=== PATIENT | male | born 1945 | race Caucasian/White ===

== ENCOUNTER → 2016-11-04 | Outpatient (CLI) | payer MEDICARE, OTHER | END | disposition home or self-care (01) | LOC: GMAL 10:53 | PROVIDERS: ATTEND Family Medicine | DX: D51.3 Other dietary vitamin B12 deficiency anemia (principal); E55.9 Vitamin D deficiency, unspecified; R97.20 Elevated prostate specific antigen [PSA] ==

== ENCOUNTER → 2017-05-06 | Outpatient (CLI) | payer MEDICARE, OTHER | END | disposition home or self-care (01) | LOC: GMAL 10:51 | PROVIDERS: ATTEND Family Medicine | DX: R53.82 Chronic fatigue, unspecified (principal) ==

== ENCOUNTER 2018-03-06 20:25 | Emergency (ER) | payer MEDICARE, OTHER ==
[2018-03-06] MEDS ORDERED: SODIUM CHLORIDE 0.9% (FLUSH) 10 ML SYG IV PRN (20:42)
[2018-03-06] MEDS ORDERED: IPRATROPIUM/ALBUTEROL 3 ML VIAL NEB ONE (21:30)
--- NOTE | 2018-03-06 21:33 | RAD ---
EXAM DESCRIPTION: Chest,1 View CLINICAL HISTORY: shortness of breath COMPARISON: January 10, 2014 FINDINGS: Apices were not included in the examination. Patient is rotated. Patient is status post median sternotomy. Pacer leads project over the heart. EKG leads project over the chest. Cardiac silhouette is within normal limits. There is no focal parenchymal or pleural disease. There is no acute osseous process visualized. IMPRESSION: No evidence of acute cardiopulmonary disease. Electronically signed by: Guy Bhat MD 03/06/2018 9:32 PM CDT
--- NOTE | 2018-03-06 21:38 | ED.PDOC ---
History of Present Illness - General Chief Complaint: Cardiovascular Problem Stated Complaint: feels like having an irregular heart beat Time Seen by Provider: 03/06/18 20:42 Source: patient, family - History of Present Illness Timing/Duration: 4-6 hours Severity: mild Location: substernal, other - palpitations Activities at Onset: none Prior Chest Pain/Cardiac Workup: cardiac cath, heart attack Improving Factors: nothing Worsening Factors: nothing Associated Symptoms: shortness of breath Allergies/Adverse Reactions: Allergies NO KNOWN ALLERGY Allergy (Unverified 01/10/14 22:10) Home Medications: Ambulatory Orders Amoxicillin 875 mg PO BID #14 tab 03/06/18 Carvedilol 3.125 mg PO BID #30 tab 03/06/18 predniSONE 40 mg PO DAILY #10 tab 03/06/18 Review of Systems - Review of Systems Constitutional: States: no symptoms reported EENTM: States: no symptoms reported Respiratory: States: short of breath, wheezing Cardiology: States: palpitations Gastrointestinal/Abdominal: States: no symptoms reported Genitourinary: States: no symptoms reported Musculoskeletal: States: no symptoms reported Skin: States: no symptoms reported Neurological: States: no symptoms reported Endocrine: States: no symptoms reported Hematologic/Lymphatic: States: no symptoms reported Past Medical History (General) - Patient Medical History Hx Asthma: Yes - undx Hx Cardiac Disorders: Yes - triple bypass Hx Congestive Heart Failure: No Hx Pacemaker: Yes Hx Hypertension: Yes Surgical History: coronary bypass surgery - Vaccination History Hx Influenza Vaccination: Yes Hx Pneumococcal Vaccination: Yes - Social History Hx Tobacco Use: Yes Hx Alcohol Use: No Family Medical History - Family History Father Hx Cardiac Disease: Yes Hx Family Cancer: Yes Physical Exam - Physical Exam General Appearance: Alert Eyes, Ears, Nose, Throat Exam: PERRL/EOMI, normal ENT inspection Neck: non-tender, full range of motion, supple Respiratory: wheezing Cardiovascular/Chest: normal peripheral pulses, bradycardia, irregularly irregular Peripheral Pulses: radial,right: 2+ Gastrointestinal/Abdominal: non tender, soft Extremity: normal range of motion, non-tender, normal inspection Neurologic: no motor/sensory deficits, alert, normal mood/affect Skin Exam: normal color, warm/dry Lymphatic: no adenopathy Progress - Progress Progress: 03/06/18 22:29 pt feels improved after neb treatment. states that has had increased cough, mucus production and sob recently. currently taking 6.25 mg carvedilol at home bid. palpated HR is 40's due to lack of profusion of the PVC's. Will decrease cavedilol to 3.125 mg bid and treat copd. o2 is normal and bp is stable. labs show prerenal azotemia so will give small ns bolus. advised close f/u with Dr. Jordan if continued palpitations or if becomes symptomatic from it. will check bp and pulse bid until f/u. pending repeat cardiac enzyme to rule out acs as a cause. currently feel primary lung issues as cause to pvc's. will return if acute worsening or chest pain. 03/06/18 23:50 road test without difficulty or problem, pt reports that feels improved after neb/ ns Departure - Departure Clinical Impression: Heart palpitations, PVCs (premature ventricular contractions), COPD with exacerbation, Bradycardia Time of Disposition: 23:47 Disposition: Discharge to Home or Self Care Condition: Good Departure Forms: ED Discharge - Pt. Copy, Patient Portal Self Enrollment Instructions: Premature Ventricular Beats, Chronic Obstructive Pulmonary Disease Diet: resume usual diet Activity: increase activity as tolerated Referrals: EDUARDO JORDAN [Referring] - 1-2 Weeks Prescriptions: Amoxicillin 875 mg PO BID #14 tab Carvedilol 3.125 mg PO BID #30 tab predniSONE 40 mg PO DAILY #10 tab Home Medications: Ambulatory Orders Amoxicillin 875 mg PO BID #14 tab 03/06/18 Carvedilol 3.125 mg PO BID #30 tab 03/06/18 predniSONE 40 mg PO DAILY #10 tab 03/06/18
[2018-03-06] MEDS ORDERED: AMOXICILLIN TRIHYDRATE 875 MG TAB PO ONE (22:28)
[2018-03-06] MEDS ORDERED: SODIUM CHLORIDE 0.9% 250ML 250 ML IVS ONE (22:28)
[2018-03-06] MEDS ORDERED: predniSONE 20 MG TAB PO ONE (22:28)
[2018-03-06] MEDS ORDERED: ALBUTEROL INH (ER DISPENSE) 1 EA INH INH ONE (23:30)
[2018-03-07 00:14] VITALS: BP 129/64; TEMP 97.9; O2SAT 93
== END 2018-03-07 00:06 | disposition home or self-care (01) ==
LOC: ER 20:25
DX: I49.3 Ventricular premature depolarization (principal); R00.1 Bradycardia, unspecified; J44.1 Chronic obstructive pulmonary disease with (acute) exacerbation; R00.2 Palpitations; I25.2 Old myocardial infarction; I10 Essential (primary) hypertension; Z95.1 Presence of aortocoronary bypass graft; Z95.0 Presence of cardiac pacemaker; R79.89 Other specified abnormal findings of blood chemistry
CPT/HCPCS: 36415; 71045; 80048; 80053; 82550; 82553; 83880; 84484; 85025; 85610; 85730; 93005; 94640; 94760; J7050; J7512; J7620

== ENCOUNTER → 2018-03-19 | Outpatient (CLI) | payer MEDICARE, OTHER | LOC: GMAL 12:08 | PROVIDERS: ATTEND Family Medicine | DX: D51.3 Other dietary vitamin B12 deficiency anemia (principal); E55.9 Vitamin D deficiency, unspecified; Z12.5 Encounter for screening for malignant neoplasm of prostate | CPT/HCPCS: 82306; 82607; G0103 ==

== ENCOUNTER → 2019-04-19 | Outpatient (CLI) | payer OTHER ==
--- NOTE | 2019-04-19 08:22 | RAD ---
PROVIDED CLINICAL HISTORY/REASON FOR EXAM: M25.561, M25.551 Findings: Number of images: One Location: Pelvis No acute fracture or dislocation. Mild left hip osteoarthritis. Bilateral sacroiliac osteoarthritis. Partially visualized multilevel lumbar spondylosis. Diffuse vascular calcifications. IMPRESSION: No evidence of acute osseous abnormality in the pelvis. Electronically signed by: El Coulter MD 04/19/2019 8:19 AM CDT
--- NOTE | 2019-04-19 10:12 | RAD ---
Single frontal radiograph right knee Indication: LIMITED 1 VIEW KNEE Comparison: None. Impression: Examination limited given only single view. Moderate to severe osteoarthritis medial knee compartment with mild changes lateral compartment. No gross fracture. Questionable ossified loose bodies projecting in the superior joint space. Scattered vascular ossifications. Correlation with dedicated lateral view recommended. Electronically signed by: Dani Mariscal MD 04/19/2019 10:10 AM CDT
== END ==
LOC: RAD 07:41
PROVIDERS: ATTEND Orthopaedic Surgery
DX: M17.11 Unilateral primary osteoarthritis, right knee (principal); M25.551 Pain in right hip

== ENCOUNTER → 2019-09-01 | Outpatient (CLI) | payer MEDICARE | LOC: GMAL 10:21 | PROVIDERS: ATTEND Family Medicine | DX: D51.3 Other dietary vitamin B12 deficiency anemia (principal); R53.82 Chronic fatigue, unspecified; E55.9 Vitamin D deficiency, unspecified; I10 Essential (primary) hypertension; R73.9 Hyperglycemia, unspecified; E78.49 Other hyperlipidemia; Z12.5 Encounter for screening for malignant neoplasm of prostate; Z79.899 Other long term (current) drug therapy | CPT/HCPCS: 82306; 82607; 84439; 84443; 84481; G0103 ==

== ENCOUNTER → 2020-07-10 | Outpatient (CLI) | payer MEDICARE | LOC: GMAL 14:35 | PROVIDERS: ATTEND Family Medicine | DX: E53.8 Deficiency of other specified B group vitamins (principal); I10 Essential (primary) hypertension; E55.9 Vitamin D deficiency, unspecified; R73.9 Hyperglycemia, unspecified; E78.49 Other hyperlipidemia; Z13.29 Encounter for screening for other suspected endocrine disorder ==